=== PATIENT | male | born 1940 | race Caucasian/White ===

== ENCOUNTER 2016-11-20 07:00 | Observation (INO) | payer OTHER, MEDICARE ==
[~2016-11-20] VITALS: Ht 177.8 cm; Wt 85.7 kg
[~2016-11-20 07:00] MED LIST: ASPIRIN CHILDRE81 MG PO; ASPIRIN EC81 M1 PO; ATORVASTATIN CA20 MG PO; CALTRATE 600 +1 EACH PO; CANASA1000 M1 RC; CIPRO 500MG TA500 MG PO; CIPRO500 M1 PO; FLAGYL500 MG PO; LASIX40 M1 PO; LASIX40 MG PO; LIPITOR20 M2 PO; MESALAMINE PR; VITAMIN D31000 UNI2 PO
--- NOTE | 2016-11-20 07:26 | NUR ---
76 YEAR OLD MALE , ALERT ORIENTED CLEAR SPEECH NOTED, AMBULATED TO ROOM WITH STEADY GAIT, STATES THAT ABOUT 1 WEEK AGO AFTER HE GOT UP FROM RECLINER CHAIR HE STARTED WITH A PAIN IN L SIDE SHOULDER NECK AND L SIDE OF FACE FEELING PINS AND NEEDLES, STATES THAT THE PAIN RADIATES DOWN HIS L ARM AND INTO HIS HAND . NIH SCORE 0. PT STATES THAT HE MOVES A LOT OF FURNITURE AND BOXES AND FEELS LIKE HE MIGHT HAVE PINCHED A NERVE.
--- NOTE | 2016-11-20 07:55 | NUR ---
PT TO CT SCAN
--- NOTE | 2016-11-20 07:59 | ED NEURO DEFICIT/STROKE ---
History of Present Illness General Chief Complaint: Neuro Symptoms/ Deficit Stated Complaint: "LT FACIAL/SIDE NUMBNESS, DIFF. SWALLOWING [id number]" Source: patient Exam Limitations: no limitations Vital Signs & Intake/Output Vital Signs & Intake/Output Vital Signs Date Time Temp Pulse Resp B/P B/P Pulse O2 O2 Flow FiO2 Mean Ox Delivery Rate 11/20 1216 98.0 77 18 171/77 11/20 1215 171/77 11/20 1108 98.0 77 18 183/92 97 Room Air 11/20 0924 98.2 71 18 202/90 95 Room Air 11/20 0713 95 Room Air 11/20 0708 97.2 74 18 198/97 95 Room Air Allergies Coded Allergies: NO KNOWN ALLERGIES (01/15/15) Reconcile Medications Aspirin (Ecotrin*) 81 MG TABLET.DR 1 TAB PO DAILY HEART HEALTH (Reported) Atorvastatin Calcium (Lipitor) 20 MG TABLET 1 TAB PO DAILY CHOLESTEROL ( Reported) Calcium Carbonate/Vitamin D3 (Caltrate 600 + D Tablet) 1 EACH TABLET 1 TAB PO DAILY Supplement Cholecalciferol (Vitamin D3) 1,000 UNIT TABLET 1 TAB PO DAILY Supplement Ciprofloxacin HCl (Cipro) 500 MG TABLET 1 TAB PO BID Abdominal infection Furosemide (Lasix) 40 MG TABLET 1 TAB PO DAILY LEG SWELLING (Reported) Mesalamine (Canasa) 1,000 MG SUPP.RECT 1 SUP RC QPM PROCTOSIGMOIDITIS ( Reported) Metronidazole (Flagyl) 500 MG TABLET 1 TAB PO BID Abdominal Infection Triage Note: 76 YEAR OLD MALE , ALERT ORIENTED CLEAR SPEECH NOTED, AMBULATED TO ROOM WITH STEADY GAIT, STATES THAT ABOUT 1 WEEK AGO AFTER HE GOT UP FROM RECLINER CHAIR HE STARTED WITH A PAIN IN L SIDE SHOULDER NECK AND L SIDE OF FACE FEELING PINS AND NEEDLES, STATES THAT THE PAIN RADIATES DOWN HIS L ARM AND INTO HIS HAND . NIH SCORE 0. PT STATES THAT HE MOVES A LOT OF FURNITURE AND BOXES AND FEELS LIKE HE MIGHT HAVE PINCHED A NERVE HE Triage Nurses Notes Reviewed? yes HPI: Patient presents for evaluation of numbness and pain over the left side of the face traveling down the left shoulder down the left arm into the left little finger. Onset was gradual about one week ago. Symptoms have been more or less constant but gets worse with movement and palpation of the periscapular region. Today he states that he tried to swallow juice but was unable to do so. This will prompt him to come to the emergency department. He only yogurt blueberries and cocoa last night. He denies any slurred speech although he is edentulous and his speech is somewhat slurred ordinarily. He denies weakness of the left arm. Past History Travel History Traveled to [place] past 21 day No Medical History Any Pertinent Medical History? 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 No Review of Systems Review of Systems Constitutional: Reports: no symptoms. EENTM: Reports: no symptoms. Respiratory: Reports: no symptoms. Cardiovascular: Reports: no symptoms. GI: Reports: no symptoms. Genitourinary: Reports: no symptoms. Musculoskeletal: Reports: see HPI. Skin: Reports: no symptoms. Neurological/Psychological: Reports: see HPI. Hematologic/Endocrine: Reports: no symptoms. Immunologic/Allergic: Reports: no symptoms. All Other Systems: Reviewed and Negative Physical Exam Physical Exam General Appearance: SEE BELOW Cranial Nerves: SEE BELOW Comments: Gen.: Well-nourished, well-developed, no acute respiratory distress. Head: Normocephalic, atraumatic. Eyes: Normal inspection bilaterally Ears: Normal inspection bilaterally Nose: Normal inspection Throat/mouth : Moist mucosa Neck: Supple, full range of motion, no goiter Heart: Regular rate and rhythm, no murmurs rubs or gallops Lungs: Clear to auscultation bilaterally with normal air entry Chest: Nontender Back: Normal range of motion Abdomen: Soft, nontender, nondistended, normal bowel sounds Extremities: Normal range of motion grossly, equal radial pulses, no cyanosis clubbing or edema, normal upper extremity strength but patient has pain with movement of the left upper extremity and with palpation over the left periscapular region. Neurologic: Cranial nerves 2 through 12 intact, speech is clear Skin: warm and dry Psychiatric: Calm, cooperative, no apparent delusions or hallucinations Core Measures CVA/TIA Diagnosis: Yes NIH Stroke Scale: Total 0 Date Last Known Well: 11/20/16 Neurological S/S of CVA: Acute Confusion (difficulty swallowing) Comment: TPA not given due to unclear nature of onset of symptoms, and age score of 0 and rapidly improving symptoms Severe Sepsis Present: No Septic Shock Present: No Progress Differential Diagnosis: esophageal foreign body, CVA, disease of the esophagus Plan of Care: Orders Procedure Date/time Status Place in observation 11/20 1319 Active EKG 11/20 1317 Active CBC WITHOUT DIFFERENTIAL 11/20 1238 Complete BASIC METABOLIC PANEL 11/20 1238 Complete EKG 11/20 0702 Active Laboratory Tests 11/20/16 1242: Anion Gap 10, Estimated GFR > 60, BUN/Creatinine Ratio 15.0, Glucose 87, Calcium 9.4, CBC w Diff NO MAN DIFF REQ, RBC 5.51, MCV 90.3, MCH 29.9, RDW 13.7, MPV 7.7 , Gran % 68.7, Lymphocytes % 21.5, Monocytes % 5.8, Eosinophils % 3.0, Basophils % 1.0, Absolute Granulocytes 6.9 H, Absolute Lymphocytes 2.1, Absolute Monocytes 0.6, Absolute Eosinophils 0.3, Absolute Basophils 0.1, PUBS MCHC 33.1 Diagnostic Imaging: Discussed w/RAD: CT Scan. Radiology Impression: PATIENT: STU JACKSON PRESENT AGE: 76 PATIENT ACCOUNT NO: [id number] : 40 LOCATION: [facility] ORDERING PHYSICIAN: RADHA LARA MD SERVICE DATE: 11/20/164095 EXAM TYPE: CAT - CT CERV SPINE WO IV CONTRAST; CT HEAD WO IV CONTRAST EXAMINATION: CRANIAL CT SCAN. CT SCAN OF CERVICAL SPINE CLINICAL INFORMATION: Facial numbness and dysphagia. Left upper extremity numbness and pain COMPARISON: Cranial CT scan 01/18/2015 TECHNIQUE: Noncontrast cranial CT scan is performed. Multidetector volumetric helical axial images are acquired without intravenous contrast. Cervical spine CT is performed. Multidetector volumetric helical axial images are acquired without intravenous contrast. Sagittal and coronal reformatted images are constructed at the workstation. FINDINGS: Cranial CT scan: No acute intra or extra-axial hemorrhage. The ventricles are top normal in size and unchanged in appearance from prior study. There is no mass effect or midline shift. No focal areas of acute territorial infarction are appreciated on the noncontrast images. No mass is delineated. A few small calcifications are incidentally noted in the region of the basal ganglia. No extra-axial fluid collections are appreciated. Sulci and cisterns are unchanged in appearance from prior. Posterior fossa is unremarkable and unchanged from prior. No skull fracture or focal bone lesion is appreciated. The visualized paranasal sinuses are clear Cervical spine CT: No compression fracture, subluxation, or other acute bony abnormality is seen. There is degenerative disc disease at C5-C6 and C6-C7 with associated hypertrophic spurring. There is facet arthropathy at all levels, most pronounced at C5-C6 and C6-C7. Prevertebral soft tissues are normal. No focal bone lesion is identified. IMPRESSION: No acute abnormality is seen in the cranial CT scan. There is no change compared to the 01/18/2015 study. No acute fracture or subluxation is seen in the cervical spine. There is degenerative disc disease and facet arthropathy most pronounced at C5-C6 and C6-C7. DICTATED BY: LOLA LUNDY MD DATE/TIME DICTATED:11/20/16810 MANUFACTURER'S SERVICE REPRESENTATIVE:VIVEK DATE/ TIME TRANSCRIBED:11/20/16810 CONFIDENTIAL, DO NOT COPY WITHOUT APPROPRIATE AUTHORIZATION. <Electronically signed in Other Vendor System> SIGNED BY: LOLA LUNDY MD 11/20/16 0829 Initial ED EKG: NSR, rate (75), lafb Prior EKG: unchanged Comments: 11/20/2016 9:17:03 AM I have updated Stu on his test results. He now states he was able to drink water in the emergency department and it "went down". He is concerned about feeling generally weak recently and about his left arm pain. However he does not have insurance coverage at this time. Given his dysphagia I must consider the possibility of a CVA and subsequent hospitalization for evaluation of reversible causes. Stu is in agreement. Departure Departure Disposition: STILL A PATIENT Condition: Stable Clinical Impression Primary Impression: CVA (cerebral vascular accident) Qualifiers: CVA mechanism: unspecified Qualified Code: I63.9 - Cerebral infarction, unspecified Secondary Impressions: Dysphagia Qualifiers: Dysphagia type: unspecified Qualified Code: R13.10 - Dysphagia, unspecified Hypertensive urgency Referrals: PATIENT HAS NO PRIMARY CARE DR (PCP/Family) Departure Forms: Customer Survey General Discharge Information
--- NOTE | 2016-11-20 08:29 | CT SCAN REPORT ---
EXAMINATION: CRANIAL CT SCAN. CT SCAN OF CERVICAL SPINE CLINICAL INFORMATION: Facial numbness and dysphagia. Left upper extremity numbness and pain COMPARISON: Cranial CT scan 01/18/2015 TECHNIQUE: Noncontrast cranial CT scan is performed. Multidetector volumetric helical axial images are acquired without intravenous contrast. Cervical spine CT is performed. Multidetector volumetric helical axial images are acquired without intravenous contrast. Sagittal and coronal reformatted images are constructed at the workstation. FINDINGS: Cranial CT scan: No acute intra or extra-axial hemorrhage. The ventricles are top normal in size and unchanged in appearance from prior study. There is no mass effect or midline shift. No focal areas of acute territorial infarction are appreciated on the noncontrast images. No mass is delineated. A few small calcifications are incidentally noted in the region of the basal ganglia. No extra-axial fluid collections are appreciated. Sulci and cisterns are unchanged in appearance from prior. Posterior fossa is unremarkable and unchanged from prior. No skull fracture or focal bone lesion is appreciated. The visualized paranasal sinuses are clear Cervical spine CT: No compression fracture, subluxation, or other acute bony abnormality is seen. There is degenerative disc disease at C5-C6 and C6-C7 with associated hypertrophic spurring. There is facet arthropathy at all levels, most pronounced at C5-C6 and C6-C7. Prevertebral soft tissues are normal. No focal bone lesion is identified. IMPRESSION: No acute abnormality is seen in the cranial CT scan. There is no change compared to the 01/18/2015 study. No acute fracture or subluxation is seen in the cervical spine. There is degenerative disc disease and facet arthropathy most pronounced at C5-C6 and C6-C7.
--- NOTE | 2016-11-20 08:57 | NUR ---
PT ABLE TO DRINK WATER WITHOUT DIFFICULTY AT THIS TIME
--- NOTE | 2016-11-20 09:28 | NUR ---
MANUAL BP ELEVATED AT THIS TIME, PT DENIES HISTORY OF HTN
--- NOTE | 2016-11-20 09:48 | NUR ---
PT UP WALKING AROUND ROOM, CHECKING HIS EMAILS AT THIS TIME
--- NOTE | 2016-11-20 10:51 | NUR ---
PT MEDICATED PER ORDER, PT SITTING UP IN CHAIR, STATES THAT HE JUST DOES NOT FEEL LIKE LAYING DOWN
--- NOTE | 2016-11-20 12:17 | NUR ---
DR LARA AT BEDSIDE TO DISCUSS PLAN OF CARE
--- NOTE | 2016-11-20 12:27 | NUR ---
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 NEGATIVE HEAD CT. NIH OF 0.
[2016-11-20 12:51] LABS: ABSOLUTE BASOPHIL COUNT 0.1 /CUMM (0.0-0.2); ABSOLUTE EOSINOPHIL COUNT 0.3 /CUMM (0.0-0.7); ABSOLUTE GRANULOCYTE CT 6.9 /CUMM (1.4-6.5); ABSOLUTE LYMPH COUNT 2.1 /CUMM (1.2-3.4); ABSOLUTE MONOCYTE COUNT 0.6 /CUMM (0.10-0.60); GRANULOCYTE % 68.7 % (42.2-75.2); HEMATOCRIT 49.8 % (42-52); MEAN CORPUSCULAR HGB 29.9 PG (27.0-31.0); MEAN CORPUSCULAR HGB CONC 33.1 G/DL (33.0-37.0); MEAN CORPUSCULAR VOLUME 90.3 FL (80.0-94.0); MEAN PLATELET VOLUME 7.7 FL (7.4-10.4); PLATELET COUNT 304 /CUMM (130-400); RBC DISTRIBUTION WIDTH 13.7 % (11.5-14.5); RED BLOOD CELL CT 5.51 /CUMM (4.70-6.10)
--- NOTE | 2016-11-20 12:52 | NUR ---
BLOOD DRAWN AND SENT TO THE LAB ([facility], [facility])
--- NOTE | 2016-11-20 13:33 | NUR ---
PT UP WALKING AROUND ROOM, DENIES CP/SOB/DIZZINESS, HAS BEEN DRINKING WATER WITHOUT DIFFICULTY. IV PLACED.
--- NOTE | 2016-11-20 14:00 | NUR ---
PT AWARE THAT WE ARE WAITING ON BED ASSIGNMENT
--- NOTE | 2016-11-20 14:42 | History & Physical ---
YUSEF KRUSE,[facility] 11/20/16 1441: General Information and HPI MD Statement: I have seen and personally examined STU JAMISON and documented this H&P. The patient is a 76 year old M who presented with a patient stated chief complaint of left arm pain and dysphagia. Source of Information: patient Exam Limitations: no limitations History of Present Illness: This is a very pleasant 76-year-old gentleman with a past medical history significant for hypertension, incarcerated inguinal hernia requiring repair in 2014, urethral stent placement for left-sided hydronephrosis. Diastolic heart failure with preserved ejection fraction, pancreatitis secondary to ERCP due to choledocholithiasis (recently in feb 2016), last admission to [facility] had patient leave AMA and patient was lost to follow-up, now presents to the ED with complaints of left arm pain/tingling and difficulty swallowing. He reports a 7-10 day onset of left arm pain with radiation laterally down his fingers and tingling sensation, does however deny any weakness of his left arm. Patient states that his left arm pain seemed to originate from the medial aspect of left scapula, and seems to be exacerbated with movement of his neck including lateral and flexion. He does deny any recent neck/head or any musculoskeletal trauma. Patient states that the only reason he decided to present to [facility] ED today was that he suddenly was having difficulty swallowing earlier in the morning while he was eating beef stew. Regarding his episode of dysphagia, denies any previous episode. He also does deny any odynophagia. During the history taking patient was given a cup of water and was noted to swallow with any difficulties. Patient denies any focal neurological deficits including speech impairment, facial drooping, extremity weakness, vision changes, or loss of sensation. Patient appears somewhat tearful when he discusses his financial situation and reports that the reason why he has not been following up with any physician is because of his limited insurance and limited income. He reports that he never took any of the medication that was prescribed from the last discharge. Allergies/Medications Allergies: Coded Allergies: NO KNOWN ALLERGIES (01/15/15) Past History Travel History Traveled to [place] past 21 day No Medical History Neurological: NONE EENT: NONE Cardiovascular: NONE Respiratory: NONE Gastrointestinal: chronic left inguinal hernia for 27 years Hepatic: NONE Renal: NONE Musculoskeletal: NONE Psychiatric: NONE Endocrine: NONE Blood Disorders: NONE Cancer(s): NONE CHARGE HAND/Reproductive: NONE History of MRSA: No History of VRE: No History of CDIFF: No Surgical History Surgical History: INGUINAL HERNIA REPAIR (he has not sought medical care) Past Family/Social History Family History Relations & Conditions if any Relation not specified for: *No pertinent family history Psychosocial History Who Do You Live With? self Services at Home: None Primary Language: Malay ETOH Use: denies use Illicit Drug Use: denies illicit drug use Living Will? unknown Power of Social Sciences Chair/HCP? unknown Functional Ability ADLs Independent: dressing, eating, toileting, bathing. Ambulation: independent IADLs Independent: shopping, housework, finances, food prep, telephone, transportation , medication admin. Review of Systems Review of Systems Constitutional: Denies: chills, diaphoresis, fever, malaise, weakness, unexplained weight loss. EENTM: Denies: blurred vision, double vision, eye drainage. Cardiovascular: Denies: chest pain, edema, palpitations, peripheral edema, syncope. Respiratory: Denies: short of breath, stridor, wheezing. GI: Denies: abdominal pain, bloating, constipation, diarrhea. Genitourinary: Reports: no symptoms. Musculoskeletal: Reports: muscle pain. Skin: Reports: no symptoms. Neurological/Psychological: Reports: paresthesia. Denies: anxiety, cognitive dysfunction, confusion. Hematologic/Endocrine: Reports: no symptoms. Immunologic/Allergic: Reports: no symptoms. All Other Systems: Reviewed and Negative Exam & Diagnostic Data Last 24 Hrs of Vital Signs/I&O Vital Signs Date Time Temp Pulse Resp B/P B/P Pulse O2 O2 Flow FiO2 Mean Ox Delivery Rate 11/20 1730 97.9 75 16 168/92 97 Room Air 11/20 1634 98.1 72 20 178/86 95 Room Air 11/20 1405 98.2 70 20 185/89 94 Room Air 11/20 1216 98.0 77 18 171/77 11/20 1215 171/77 11/20 1108 98.0 77 18 183/92 97 Room Air 11/20 0924 98.2 71 18 202/90 95 Room Air 11/20 0713 95 Room Air 11/20 0708 97.2 74 18 198/97 95 Room Air Intake & Output 11/20 1600 11/20 0800 11/20 0000 Intake Total 240 0 Output Total Balance 240 0 Intake, Oral 240 0 Patient 85.729 kg Weight Physical Exam General Appearance Alert, Oriented X3, Cooperative HEENT Atraumatic, PERRLA, EOMI, Mucous Membr. moist/pink Neck Supple, No JVD, No thryomegaly, +2 Carotid Pulse wo Bruit, mild pain on neck flexion Lymphatic Cervical nl Cardiovascular Regular Rate, Normal S1, Normal S2, No Murmurs Lungs Clear to Auscultation, Normal Air Movement Abdomen Normal Bowel Sounds, Soft, No Tenderness, No Hepatospenomegaly Neurological Normal Gait, Normal Speech, Strength at 5/5 X4 Ext, Normal Tone, Sensation Intact, Cranial Nerves 3-12 NL, Reflexes 2+ Extremities mild pain on palpation of affected left arm.However strength and ROM intact. Last 24 Hrs of Labs/Trevor: Laboratory Tests 11/20/16 1242: Anion Gap 10, Estimated GFR > 60, BUN/Creatinine Ratio 15.0, Glucose 87, Calcium 9.4, Troponin I < 0.01, CBC w Diff NO MAN DIFF REQ, RBC 5.51, MCV 90.3, MCH 29.9 , RDW 13.7, MPV 7.7, Gran % 68.7, Lymphocytes % 21.5, Monocytes % 5.8, Eosinophils % 3.0, Basophils % 1.0, Absolute Granulocytes 6.9 H, Absolute Lymphocytes 2.1, Absolute Monocytes 0.6, Absolute Eosinophils 0.3, Absolute Basophils 0.1, PUBS MCHC 33.1 Diagnostic Data Other Results SERVICE DATE: 11/20/16 EXAM TYPE: CAT - CT CERV SPINE WO IV CONTRAST; CT HEAD WO IV CONTRAST EXAMINATION: CRANIAL CT SCAN. CT SCAN OF CERVICAL SPINE SERVICE DATE: 11/20/16 EXAM TYPE: CAT - CT CERV SPINE WO IV CONTRAST; CT HEAD WO IV CONTRAST EXAMINATION: CRANIAL CT SCAN. CT SCAN OF CERVICAL SPINE CLINICAL INFORMATION: Facial numbness and dysphagia. Left upper extremity numbness and pain COMPARISON: Cranial CT scan 01/18/2015 TECHNIQUE: Noncontrast cranial CT scan is performed. Multidetector volumetric helical axial images are acquired without intravenous contrast. Cervical spine CT is performed. Multidetector volumetric helical axial images are acquired without intravenous contrast. Sagittal and coronal reformatted images are constructed at the workstation. FINDINGS: Cranial CT scan: No acute intra or extra-axial hemorrhage. The ventricles are top normal in size and unchanged in appearance from prior study. There is no mass effect or midline shift. No focal areas of acute territorial infarction are appreciated on the noncontrast images. No mass is delineated. A few small calcifications are incidentally noted in the region of the basal ganglia. No extra-axial fluid collections are appreciated. Sulci and cisterns are unchanged in appearance from prior. Posterior fossa is unremarkable and unchanged from prior. No skull fracture or focal bone lesion is appreciated. The visualized paranasal sinuses are clear Cervical spine CT: No compression fracture, subluxation, or other acute bony abnormality is seen. There is degenerative disc disease at C5-C6 and C6-C7 with associated hypertrophic spurring. There is facet arthropathy at all levels, most pronounced at C5-C6 and C6-C7. Prevertebral soft tissues are normal. No focal bone lesion is identified. IMPRESSION: No acute abnormality is seen in the cranial CT scan. There is no change compared to the 01/18/2015 study. No acute fracture or subluxation is seen in the cervical spine. There is degenerative disc disease and facet arthropathy most pronounced at C5-C6 and C6-C7. DICTATED BY: LOLA LUNDY MD CLINICAL INFORMATION: Facial numbness and dysphagia. Left upper extremity numbness and pain COMPARISON: Cranial CT scan 01/18/2015 TECHNIQUE: Noncontrast cranial CT scan is performed. Multidetector volumetric helical axial images are acquired without intravenous contrast. Cervical spine CT is performed. Multidetector volumetric helical axial images are acquired without intravenous contrast. Sagittal and coronal reformatted images are constructed at the workstation. FINDINGS: Cranial CT scan: No acute intra or extra-axial hemorrhage. The ventricles are top normal in size and unchanged in appearance from prior study. There is no mass effect or midline shift. No focal areas of acute territorial infarction are appreciated on the noncontrast images. No mass is delineated. A few small calcifications are incidentally noted in the region of the basal ganglia. No extra-axial fluid collections are appreciated. Sulci and cisterns are unchanged in appearance from prior. Posterior fossa is unremarkable and unchanged from prior. No skull fracture or focal bone lesion is appreciated. The visualized paranasal sinuses are clear Cervical spine CT: No compression fracture, subluxation, or other acute bony abnormality is seen. There is degenerative disc disease at C5-C6 and C6-C7 with associated hypertrophic spurring. There is facet arthropathy at all levels, most pronounced at C5-C6 and C6-C7. Prevertebral soft tissues are normal. No focal bone lesion is identified. IMPRESSION: No acute abnormality is seen in the cranial CT scan. There is no change compared to the 01/18/2015 study. No acute fracture or subluxation is seen in the cervical spine. There is degenerative disc disease and facet arthropathy most pronounced at C5-C6 and C6-C7. DICTATED BY: LOLA LUNDY MD Assessment/Plan Assessment: This is a 76 yo very pleasent gentleman with a PMHX significant for Hypertension but not on any BP med (non compliant due to financial restarints), HFprEF presents with 7-10 day onset of left arm pain from scapular area radiating down his fingers along the ulnar distribution and is found to have radiologcal CT finding of c5-c6, c6-c7 facet athropathy. He denied any hemiparesis. He also has a transient episode of dysphage earlier in the morning. At presentation vanessa is found to be in hypertensive urgency with elevated bp of upto 202/90. Labs obtained were WNL and CT head was negative for any acute intracranial pathology . Impression and Plan * Dysphagia. Transient episode with complete resolution with patient passing bedside swallow eval. Considering patient elevated BP and not taking any bp meds since last amission , cerebrovasulcar events are always a concern. Since the dyphagia was transient and CT was unremarkable, less likley to be CVA. Could possibly be TIA, considering the parasethesias of the left arm and the dysphagia. Plan Would admit to telemetry with 23 obs for an PAF. Neuro checks q 4hs Aspirin 81mg Atorvastatin 40 mg Fasting Lipid panel Carotid Doppler Pt is highly ambulatory and was seen at the telemetry floor walking around the hallway with ease (Will not need PT). Left Arm pain The parasthesias and radiation along the ulnar nerve pattern with positive lehmrite test and radiological CT finding of facet arthopathy from c5 through c7 is suggestive of radiculopathy. The scapular pain is most likely referred pain from the nerve impingement. Plan Will start Gabapentin 100 mg tid and consider titrating up tomorrow May refer vanessa to outpatient PT. Hypertensive Urgency BP of upto 202/90 with no obvious end organ damage signs, repsonded well to amlodipine 10 mg. Most likely secondary to non compliance as patient never got his medication filled since discharged in feb 2016. Plan * Will start amlodipine 5 mg daily with goal not to decrease BP drastically (20- 25%) as patient may have been chroncically hypertensive for awhile. * Will cordinate careful upon discharge to ensure patients home bp meds is affordable (consider $ 4 med list) Social issues Pt was suppose to follow up with surrgical services and urology for possible lap/choley and stent rremoval, he also did not fill his prescrpitions. He currently does not have any PCP. Patient was almost tearful during history taking and communicated to us that he has financial constraints which affects his insurance coverage making him avoid medical care. Plan * Will consult with case management/socially responsible investment adviser in assisiting patient with insurance coverage options * Will offer PCP refferall upon discharge * If new Rxs needed during discharge, will choose generic that are included in the $4 dollar list. As Ranked By This Provider Problem List: 1. Hypertensive urgency 2. Dysphagia Qualifiers Dysphagia type: unspecified Qualified Code: R13.10 - Dysphagia, unspecified 3. Radiculopathy affecting upper extremity Core Measures/Miscellaneous Acute Coronary Syndrome ACS Diagnosis: No Cerebrovascular Accident CVA/TIA Diagnosis: Yes Date Last Known Well: 11/20/16 Neurological S/S of CVA: Acute Confusion (difficulty swallowing) Bedside Swallow Eval Done: Yes Result of Evaluation: Pass Antithrombotic: Yes Congestive Heart Failure CHF Diagnosis: No Venous Thromboembolism VTE Risk Factors: [facility] prophylaxis d/t: No contraindications No VTE Pharm Prophylaxis d/t: No contraindications VTE Diagnosis: No VTE Type: NONE VTE Confirmed by (Test): NONE Severe Sepsis Severe Sepsis Present: No Septic Shock Septic Shock Present: No Miscellaneous Documentation Attending Case Discussed With: CAREN KRUSE,LAURA Whitfield Primary Care Physician: PATIENT HAS NO PRIMARY CARE DR Patient sees these Specialists none Level of Patient Care: Telemetry OMARI MATA 11/20/16 0083: Resident Review Statement Other Findings: Mr. 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 Unfortunately, he has not followed up with a doctor since his previous admission , and has not been on any medications. Of note, the left AGAINST MEDICAL ADVICE during his last admission in February. He was supposed to follow-up with Robert Blanc MD for an elective cholecystectomy as well as Dr. Jorge L Orlando to f/ u his sphincterotomy/stent placement, as well as Dr. Parson for a ureteral stent removal, however he states that he has not done so. Regarding his acute complaints and presentation today, he states that he presented to the hospital after he was unable to swallow his breakfast this morning. He states that yesterday he had a regular meal, however this morning he was unable to swallow after having some odynophagia. He coughed up his food and was worried, so he came to the hospital. Additionally, he states that he has had left arm pain and paresthesias, originating from his left scapula shooting down his left arm on the medial aspect in an ulnar distribution. He states that the pain is exacerbated with movement of his arm upwards, as well as when he touches his chin to his chest, and rotates his neck to the left. He states that this will problem has been going on for approximately 1 week. He states that he has never had any symptoms like this in the past. Prior to the time of interview, the patient was able to tolerate water by mouth without any difficulty. The remainder of the review of systems is negative as dictated above. Physical exam, vitals on presentation, temperature 97.2, pulse rate 74, respiratory rate 18, blood pressure 190/97 saturating 95% on room air. The physical exam is benign except for pain with active range of motion of the left arm, neck rotation to the left, and neck flexion. The pain is similar to the pain as he describes, shooting pain, 5 out of 10. Neuro exam: Cranial nerves grossly intact, strength and sensation bilateral and equal in the upper extremities. Heart and lung exam are benign, abdominal exam benign, however umbilical hernia noted. The patient was treated with aspirin 81 mg, and amlodipine 10 mg in the emergency department, and his blood pressure corrected to 168/92. The remainder of vitals remained stable. Labs were unremarkable including white count, and BUN/creatinine. Troponin less than 0.01. EKG revealed normal sinus rhythm at 75 bpm, with left axis deviation. GA interval 160, QTC 496. There was a pattern of a left anterior fascicular block as well noted in the precordial leads. Imaging of the head and neck were performed, noncontrast CT revealed no acute abnormality compared to 2015. However there was degenerative disc disease and facet arthropathy noted at C5 to C6 and C6 to C7. Problem list/assessment and plan Dysphagia ? 2/2 ischemic CVA vs TIA HTN Cervial radiculopathy Stage 1 diastolic heart dysfunction Hx of L hydronephrosis s/p ureteral stent placement * NIH stroke scale 0. This event could be secondary to a TIA as he has tolerated clear liquid and has no other symptoms. * He did pass a bedside swallow evaluation, and we will monitor him for resolution of his symptoms. * We will admit to observation in telemetry for monitoring/evaluation of any dysrhythmias which may have lead to this presentation * He was given a baby aspirin in the ED and we will continue this tomorrow. * We will also evaluate with an U/S of the carotids. We will hold loading plavix for now given his lack of overt neuro symptoms. * We will attempt to initiate a diet and evaluate with a formal swallow eval in the am. * He has not hx of smoking/alcohol use, and his dysphagia is acute onset, not progressive, so I'm less inclined to think esoph. CA, but if he remains dysphagic, we will consider a barium swallow, or GI consult for EGD. * We will not over correct his BP in case there is a component of cranial ischemia, and as I'm sure his BP has been chronically elevated given his lack of follow up, as we do not want to induce cerebral ischemia. We will start low dose amlodipine for now, 5mg, although if this is deemed a CVA and he does have a hx of stage 1 diastolic dysfunction, and JACKLYN-inhibitor may be better suitable for him. * I believe his arm pain is 2/2 cervical radiculopathy, however if his symptoms worsen, consider further imaging of the head/neck with a head MRI for further evaluation * We do not have a recent lipid panel, but lipid panel in 02/2016 showed cholesterol 597 and LDL 196, TG 296. His current ASCVD score cannot be calculated, but we will order a lipid panel in the am, and dose moderate-high dose atorvastatin 40mg daily for now. Please evaluate for 80mg in the am. * We will also place a social and case management consult as he does not have insurance, but will at least qualify for medicare given his age. Unfortunately he states that he has not followed up with doctors or taken his medication secondary to his low income and insurance. We will try and set him up to start paperwork to obtain insurance, but please also advise again on discharge of the need to follow-up with at least [facility] so that he can be plugged into the system. FULL CODE ALPS for DVT ppx Heart healthy diet pain path as ordered LAURA FABIAN 11/21/16 1310: General Information and HPI Allergies/Medications Home Med list Amlodipine Besylate 5 MG TABLET 5 MG PO DAILY Blood pressure Aspirin (Aspirin*) 81 MG TAB.CHEW 81 MG PO DAILY HEART Gabapentin 100 MG CAPSULE 100 MG PO Q8 NEUROPATHIC PAIN Simvastatin (Zocor*) 20 MG TABLET 1 TAB PO DAILY Cholesterol Attending MD Review Statement Attending Statement Attending MD Statement: examined this patient, discuss w/resident/PA/PELT GRADER, agreed w/resident/PA/PELT GRADER, reviewed EMR data (avail), discussed with nursing Attending Assessment/Plan: 76 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 Patient had some trouble swallowing this a.m. and decided to come to the emergency room for further evaluation. Troponin done in the emergency room was negative and so was the CAT scan of the head. We' ve the patient on observation and will monitor him on telemetry. His initial troponin was negative. His blood pressure at admission was high so we started him on amlodipine. We will also get a carotid ultrasound to complete the workup and will get a lipid panel in the morning. We started the patient on baby aspirin and statins. He previously had an echocardiogram about 2 years ago which showed stage I diastolic dysfunction but no other significant abnormalities.
--- NOTE | 2016-11-20 15:22 | NUR ---
HOUSE STAFF AT BEDSIDE
--- NOTE | 2016-11-20 15:34 | NUR ---
PER HOUSE STAFF, EMERGENCY DEPARTMENT NURSING STAFF SUPPOSED TO CANCEL ALL MEDS IF PATIENT NOT ON ANY MEDICATIONS. ALL MEDICATIONS CANCELED IN RECONCILIATION SCREEN.
--- NOTE | 2016-11-20 15:40 | NUR ---
REPORT TO FLOOR
--- NOTE | 2016-11-20 15:41 | NUR ---
PT HAS BED ASSIGNMENT 179-2.
[2016-11-20 17:30] VITALS: BP 168/92
[2016-11-21 01:09] VITALS: BP 142/80
[2016-11-21 08:14] VITALS: BP 154/91
[2016-11-21 08:16] VITALS: BP 151/78; BP 154/91
--- NOTE | 2016-11-21 09:28 | PN- Housestaff ---
Subjective Follow-up For: Dysphagia ? 2/2 ischemic CVA vs TIA HTN Cervial radiculopathy Stage 1 diastolic heart dysfunction Hx of L hydronephrosis s/p ureteral stent placement Tele-Events Since Last Visit: SR, HR 57-78 Subjective: Patient seen and examined. Resting comfortably in bed with no complaints. Dyphagia resolved but still has numbness and pain in the left arm. Feeling tired because of this. Denies any headache, chest discomfort, palpitations, dypsnea, lightheadedness, dizziness, abdominal pain, n/v/c/d.No events reported overnight. Review of Systems Constitutional: Reports: see HPI. Objective Last 24 Hrs of Vital Signs/I&O Vital Signs Date Time Temp Pulse Resp B/P B/P Pulse O2 O2 Flow FiO2 Mean Ox Delivery Rate 11/21 1012 69 154/91 11/21 0816 97.4 69 16 154/91 95 Room Air 3.0L 11/21 0814 97.4 69 69 154/91 95 Room Air 11/21 0109 97.4 73 16 142/80 96 Room Air 11/20 1730 97.9 75 16 168/92 97 Room Air 11/20 1634 98.1 72 20 178/86 95 Room Air 11/20 1405 98.2 70 20 185/89 94 Room Air Intake & Output 11/21 1600 11/21 0800 11/21 0000 Intake Total 200 600 Output Total Balance 200 600 Intake, Oral 200 600 Patient 85.729 kg Weight Physical Exam General Appearance: Alert, Oriented X3, Cooperative, No Acute Distress Other Physical Findings: HEENT Atraumatic, PERRLA, EOMI, Mucous Membr. moist/pink Neck Supple, No JVD, No thryomegaly, +2 Carotid Pulse wo Bruit, mild pain on neck flexion Lymphatic Cervical nl Cardiovascular Regular Rate, Normal S1, Normal S2, No Murmurs Lungs Clear to Auscultation, Normal Air Movement Abdomen Normal Bowel Sounds, Soft, No Tenderness, No Hepatospenomegaly Neurological Normal Gait, Normal Speech, Strength at 5/5 X4 Ext, Normal Tone, Sensation Intact, Cranial Nerves 3-12 NL, Reflexes 2+ Extremities mild pain on palpation of affected left arm.However strength and ROM intact. Current Medications: Current Medications Sig/Nataliia Start time Last Medication Dose Route Stop Time Status Admin Acetaminophen 650 MG Q6P PRN 11/20 1515 AC PO Amlodipine Besylate 5 MG DAILY 11/21 1000 AC 11/21 PO 1012 Aspirin 81 MG DAILY 11/21 1000 AC 11/21 PO 1012 Atorvastatin Calcium 20 MG DAILY 11/22 1000 AC PO Atorvastatin Calcium 40 MG DAILY 11/21 1131 DC PO Atorvastatin Calcium 40 MG ONCE ONE 11/20 1715 DC 11/20 PO 11/20 1716 1823 Cyclobenzaprine HCl 5 MG TID 11/21 1157 AC PO Gabapentin 100 MG Q8 11/20 2200 AC 11/21 PO 0706 Ibuprofen 600 MG Q6P PRN 11/20 1515 AC PO Oxycodone/ 1 TAB Q6P PRN 11/20 1515 AC 11/21 Acetaminophen PO 0018 Last 24 Hrs of Lab/Trevor Results Last 24 Hrs of Labs/Mics: Laboratory Tests 11/21/16 0657: Triglycerides 192 H, Cholesterol 219 H, LDL Cholesterol, Calc 151 H, HDL Cholesterol 30 L, Cholesterol/HDL Ratio 7.3 H Assessment/Plan Assessment: Mr. 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 # Possible TIA NIH stroke scale 0. His complaints of dysphagia and paresthesia in LUE could be secondary to a TIA as he is now tolerating clear liquid and has no other symptoms. He passed a bedside swallow evaluation. Dysphagia currently resolved but pt still complains of numbness and pain in the LUE which is probably related to cervical radiculopathy. * Cont observation in telemetry for monitoring/evaluation of any dysrhythmias which may have lead to this presentation * Cont baby aspirin * Held loading plavix given his lack of overt neuro symptoms. * U/S of the carotids. * Cont Gabapentin 100mg TID * Start Flexeril 5mg TID # HTN We will not over correct his BP in case there is a component of cranial ischemia. * Cont low dose amlodipine at 5mg QD * Consider starting JACKLYN-inhibitor given history of diatolic CHF # Cervial radiculopathy * Gabapentin 100mg TID * Flexeril 5mg TID * if his symptoms worsen, consider further imaging of the head/neck with a head MRI for further evaluation # Stage 1 diastolic heart dysfunction * Apprecaite cardio recs * Echo to be followed # Hx of L hydronephrosis s/p ureteral stent placement * Follow renal U/S # HLD Lipid panel in 02/2016 showed cholesterol 597 and LDL 196, TG 296. * Lipitor 20mg PO daily for now * Repeat lipid panel also c/w hyperlipidemia # Outpatient follow up care * We will also place a social and case management consult as he does not have insurance, but will at least qualify for medicare given his age. Unfortunately he states that he has not followed up with doctors or taken his medication secondary to his low income and insurance. We will try and set him up to start paperwork to obtain insurance, but please also advise again on discharge of the need to follow-up with at least [facility] so that he can be plugged into the system. FULL CODE ALPS for DVT ppx Heart healthy diet pain path as ordered Problem List: 1. Radiculopathy affecting upper extremity 2. Hypertensive urgency 3. Dysphagia 4. CVA (cerebral vascular accident) 5. Transaminitis Pain Ratin Pain Location: LUE Pain Goal: Pain 4 or less Pain Plan: Gabapentin Flexeril Tomorrow's Labs & Rationales: CBC BEP
[2016-11-21] MEDS ORDERED: ZOCOR20 M1 PO (11:33)
--- NOTE | 2016-11-21 11:43 | ULTRASOUND REPORT ---
EXAMINATION: BILATERAL DUPLEX CAROTID ULTRASOUND CLINICAL INDICATION: 76-year-old male presented with left arm numbness, pain. COMPARISON: None TECHNIQUE: TECHNIQUE: Real-time ultrasound and Doppler techniques (integrating B-mode 2D vascular images, Doppler spectral analysis and color flow Doppler imaging) were utilized to interrogate the extracranial carotid and vertebral arteries bilaterally. The degree of stenosis determined by criteria similar to NASCET. . FINDINGS: On the RIGHT, mild focal atherosclerotic plaques are noted at the carotid arterial bifurcation.. In the distal CCA, the peak systolic velocity is 92 cm/sec. In the proximal ICA, the peak systolic velocity is 77 cm/sec, and the end diastolic velocity is 21 cm/sec. The ICA/CCA ratio is 0.83. On the LEFT, mild atherosclerotic plaques are noted within the distal part of the common carotid artery and bifurcation, extending into the origin of the left internal carotid artery. In the distal CCA, the peak systolic velocity is 83 cm/sec. In the proximal ICA, the peak systolic velocity is 68 cm/sec, and the end diastolic velocity is 29.6 cm/sec. The ICA/CCA ratio is 0.81. The vertebral arteries show antegrade flow with normal waveforms bilaterally. IMPRESSION: 1. The right internal carotid artery shows no hemodynamically significant stenosis. 2. The left internal carotid artery shows no hemodynamically significant stenosis. 3. The carotid arterial velocities are consistent with less than 50% stenoses bilaterally. 4. Both vertebral arteries are patent and show antegrade flow.
--- NOTE | 2016-11-21 11:43 | ULTRASOUND REPORT ---
EXAMINATION: US RETROPERITONEAL COMPLETE (RENAL) CLINICAL INFORMATION: Reevaluation for left-sided hydronephrosis. Status post left-sided stent placement.. COMPARISON: MRI of the abdomen done on 03/25/[address] of the abdomen done on 03/23/2016. TECHNIQUE: Real-time imaging of the kidneys and bladder. FINDINGS: RIGHT KIDNEY: 11.4 x 4.8 x 5.3 cm (SAG x AP x TRV). The kidney is normal in size, contour, and echogenicity. Renal cortical thickness is normal. No calculi or focal parenchymal lesions. No hydronephrosis. LEFT KIDNEY: 11.9 x 5.6 x 5.2 cm (SAG x AP x TRV). The kidney is normal in size, contour, and echogenicity. Renal cortical thickness is normal. No calculi or focal parenchymal lesions. No hydronephrosis. BLADDER: Well-distended and normal. Bilateral ureteral jets are demonstrated. Prevoid bladder volume is 139 mL. Postvoid bladder volume was not measured since not requested. The prostate is visualized, measures 3.1 x 2.8 x 4.0 cm. The lower end of the stent within the urinary bladder is visualized. IMPRESSION: 1. Sonographically unremarkable kidneys. 2. Specifically, no sonographic evidence of left-sided hydronephrosis is present..
[2016-11-21] MEDS ORDERED: GABAPENTIN100 M2 PO (11:56)
[2016-11-21] MEDS ORDERED: AMLODIPINE BESYL5 M1 PO (11:56)
[2016-11-21] MEDS ORDERED: ASPIRIN81 M4 PO (11:56)
--- NOTE | 2016-11-21 13:14 | PN- Att Addend ---
See Addendum Attending MD Review Statement Attending Statement Attending MD Statement: examined this patient, discuss w/resident/PA/ADDRESSOGRAPH OPERATOR, agreed w/resident/PA/ADDRESSOGRAPH OPERATOR, reviewed EMR data (avail), discussed w/nursing Attending Assessment/Plan: Laboratory Tests 11/21/16 0657: Triglycerides 192 H, Cholesterol 219 H, LDL Cholesterol, Calc 151 H, HDL Cholesterol 30 L, Cholesterol/HDL Ratio 7.3 H Vital Signs Date Time Temp Pulse Resp B/P B/P Pulse O2 O2 Flow FiO2 Mean Ox Delivery Rate 11/21 1012 69 154/91 11/21 0816 97.4 69 16 154/91 95 Room Air 3.0L 11/21 0814 97.4 69 69 154/91 95 Room Air 11/21 0109 97.4 73 16 142/80 96 Room Air 11/20 1730 97.9 75 16 168/92 97 Room Air 11/20 1634 98.1 72 20 178/86 95 Room Air 11/20 1405 98.2 70 20 185/89 94 Room Air Patient seen and examined at bedside. Discussed with patient the care plan. Patient still continues to have left shoulder pain radiating down the arm to his left hand. We will add Flexeril to his pain medication regimen. His CT of the cervical spine showed following findings-"No acute fracture or subluxation is seen in the cervical spine. There is degenerative disc disease and facet arthropathy most pronounced at C5-C6 and C6-C7." Plan is to continue the pain management. His cholesterol level was high so we have started him on 20 mg off Zocor and we will continue the baby aspirin for now. His blood pressure is better controlled compared with admission but still continues to be high. We'll monitor it closely.
[2016-11-21 15:50] VITALS: BP 146/76
[2016-11-21 22:27] VITALS: BP 132/76
--- NOTE | 2016-11-22 08:23 | PN- Housestaff ---
See Addendum Subjective Follow-up For: 1.Dysphagia (resolved) 2.HTN 3.Cervial radiculopathy 4.Stage 1 diastolic heart dysfunction 5.Hyperlipidemia Subjective: Afebrile, hemodynamically stable, and saturating well on room air. No acute overnight events reported. Patient reported improvement of left arm pain however he still complained of some numbness. Patient denies any other current active complaints. He is stable and will most likely get discharge later today. Review of Systems Constitutional: Reports: see HPI. Objective Last 24 Hrs of Vital Signs/I&O Vital Signs Date Time Temp Pulse Resp B/P B/P Pulse O2 O2 Flow FiO2 Mean Ox Delivery Rate 11/22 0949 98.1 74 20 140/70 Room Air 11/22 0930 140/70 11/21 2227 98.6 78 20 132/76 94 Room Air 11/21 1550 87.9 75 18 146/76 97 Intake & Output 11/22 1600 11/22 0800 11/22 0000 Intake Total 480 480 Output Total Balance 480 480 Intake, Oral 480 480 Physical Exam General Appearance: Alert, Oriented X3, Cooperative, No Acute Distress HEENT: Atraumatic, PERRLA, EOMI, Mucous Membr. moist/pink Cardiovascular: Regular Rate, Normal S1, Normal S2, No Murmurs Lungs: Clear to Auscultation, Normal Air Movement Abdomen: Soft, No Tenderness Neurological: Normal Gait, Normal Speech, Strength at 5/5 X4 Ext Extremities: No Clubbing, No Cyanosis, No Edema Current Medications: Current Medications Sig/Nataliia Start time Last Medication Dose Route Stop Time Status Admin Acetaminophen 650 MG Q6P PRN 11/20 1515 AC PO Amlodipine Besylate 5 MG DAILY 11/21 1000 AC 11/22 PO 0930 Aspirin 81 MG DAILY 11/21 1000 AC 11/22 PO 0930 Atorvastatin Calcium 20 MG DAILY 11/22 1000 AC 11/22 PO 0930 Atorvastatin Calcium 40 MG DAILY 11/21 1131 DC PO Cyclobenzaprine HCl 5 MG TID 11/21 1157 AC 11/22 PO 0931 Gabapentin 200 MG Q8 11/22 1400 AC PO Gabapentin 100 MG Q8 11/20 2200 DC 11/22 PO 0930 Ibuprofen 600 MG Q6P PRN 11/20 1515 AC PO Oxycodone/ 1 TAB Q6P PRN 11/20 1515 AC 11/21 Acetaminophen PO 0018 Polyethylene Glycol 17 GM DAILY PRN 11/21 2014 AC 11/21 PO 2016 Assessment/Plan Assessment: Mr. 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 #CT CERV SPINE and HEAD IMPRESSION: 1.No acute abnormality is seen in the cranial CT scan. There is no change compared to the 01/18/2015 study. 2.No acute fracture or subluxation is seen in the cervical spine. There is degenerative disc disease and facet arthropathy most pronounced at C5-C6 and C6-C7. #[id number] DOPPLER IMPRESSION: 1. The right internal carotid artery shows no hemodynamically significant stenosis. 2. The left internal carotid artery shows no hemodynamically significant stenosis. 3. The carotid arterial velocities are consistent with less than 50% stenoses bilaterally. 4. Both vertebral arteries are patent and show antegrade flow. #Upper extremity pain and numbness most likely 2/2 cervical radiculopathy. Patient presented with blood pressure of 200/90, he was complaining of left arm pain and numbness, he also reports dysphagia. CT head results can be seen above. * Cont baby aspirin * Increased Gabapentin to 300 mg 3 times a day * Continue Flexeril 5mg twice a day when necessary # HTN Patient presented with high blood pressure, he is not compliant with his medication because he has no insurance. Blood pressure was slowly corrected. On discharge he was prescribed metoprolol 25 mg twice a day # Hx of L hydronephrosis s/p ureteral stent placement Ultrasound result was 1. Sonographically unremarkable kidneys. 2. Specifically, no sonographic evidence of left-sided hydronephrosis is present. * Patient will be instructed to follow as an outpatient # HLD Lipid panel in 02/2016 showed cholesterol 597 and LDL 196, TG 296. Repeated lipid panel showed triglycerides 192, cholesterol 219, LDL 151, and HDL 30. Patient was not complying because he has no insurance. Patient was discharged lovastatin 20 mg once daily. He was instructed to follow with PCP as an outpatient # Outpatient follow up care Unfortunately he states that he has not followed up with doctors or taken his medication secondary to his low income and insurance. We will try and set him up to start paperwork to obtain insurance. On discharge patient will be instructed to follow up with [facility] so that he can be plugged into the system. FULL CODE ALPS for DVT ppx Heart healthy diet Problem List: 1. Radiculopathy affecting upper extremity 2. Hypertensive urgency 3. Dysphagia Pain Ratin Pain Location: left arm Pain Goal: Remain pain free Pain Plan: See A&P Tomorrow's Labs & Rationales: None as patient most likely discharged today
[2016-11-22] MEDS ORDERED: GABAPENTIN100 M2 PO ×3 (09:35→09:55)
[2016-11-22] MEDS ORDERED: CYCLOBENZAPRINE5 M2 PO ×2 (09:35→09:55)
[2016-11-22] MEDS ORDERED: LOVASTATIN20 M1 PO (09:37)
[2016-11-22] MEDS ORDERED: METOPROLOL TART25 M1 PO (09:43)
[2016-11-22 09:49] VITALS: BP 140/70
--- NOTE | 2016-11-22 09:51 | Patient Discharge Instructions ---
Discharge Instructions General Discharge Information You were seen/treated for: 1.Left shoulder pain most likely secondary to degenerative disc disease 2. High blood pressure 3. High blood cholesterol Special Instructions: Please follow up with the provided referral address to establish a primary care doctor. Please take the prescribed medication as provided. Diet Continue normal diet: Yes Activity Full Activity/No Limits: Yes Activity Self Limited: Yes Acute Coronary Syndrome Inclusion Criteria At DC or during hospital stay patient has or had the following: ACS DIAGNOSIS No Discharge Core Measures Meds if any: Prescribed or Continued at Discharge Meds if any: NOT Prescribed or Continued at Discharge Congestive Heart Failure Inclusion Criteria At DC or during hospital stay patient has or had the following: CHF DIAGNOSIS No Discharge Core Measures Meds if any: Prescribed or Continued at Discharge Meds if any: NOT Prescribed or Continued at Discharge Cerebrovascular accident Inclusion Criteria At DC or during hospital stay patient has or had the following: CVA/TIA Diagnosis No Discharge Core Measures Meds if any: Prescribed or Continued at Discharge Meds if any: NOT Prescribed or Continued at Discharge Venous thromboembolism Inclusion Criteria VTE Diagnosis No VTE Type NONE VTE Confirmed by (Test) NONE Discharge Core Measures - Per Current guidelines, there needs to be overlap - treatment for the first 5 days of Warfarin therapy. - If discharged on Warfarin prior to 5 days of - overlap therapy, the patient will need to be - assessed for post discharge needs including - *Post discharge parental anticoagulation - *Warfarin and/or parental anticoagulation education - *Follow up date to check INR post discharge At least 5 days overlap therapy as Inpatient No Meds if any: Prescribed or Continued at Discharge Note: Overlap Therapy is Warfarin and Anticoagulant Meds if any: NOT Prescribed or Continued at Discharge
== END 2016-11-22 11:45 ==
LOC: ERH 07:00 → ERHI 13:19 → 1NO 13:19 → ERHI 14:17 → ERH 14:17 → ERHI 15:03 → CANRESERV 15:26 → ENRESERV 15:26 → ERHI 16:32 → ENTRNSPT 16:37 → ENRESERV 17:15 → 1NO 17:16 → CMPTRNSPT 17:39 → 1NO 11-22 08:49 → ENPENDDIS 11-22 09:59 → 1NO 11-22 11:45
PROVIDERS: Emergency Medicine; Internal Medicine Cardiovascular Disease; ADMIT Internal Medicine
DX: R13.10 Dysphagia, unspecified (principal); M54.10 Radiculopathy, site unspecified; I11.0 Hypertensive heart disease with heart failure; I50.32 Chronic diastolic (congestive) heart failure; E78.5 Hyperlipidemia, unspecified; R20.0 Anesthesia of skin; M79.602 Pain in left arm
CPT/HCPCS: 76775; 93005; 93010; G0378; J3490